=== PATIENT | female | born 1985 | race Caucasian/White ===

== ENCOUNTER 2019-10-19 16:30 | Inpatient (IN) | payer OTHER ==
[2019-10-19] MEDS ORDERED: 0.9 % SODIUM CHLORIDE 1,000 ML BAG IV ONE (16:41)
[2019-10-19] MEDS ORDERED: ONDANSETRON HCL IV 4 MG/2 ML VIAL IV ONE (16:41)
--- NOTE | 2019-10-19 16:44 | Emergency Department Record ---
History of Present Illness - General Chief Complaint: Abdominal Pain Stated Complaint: ALCHOL WITHDRAWAL,ABD PAIN Time Seen by Provider: 10/19/19 16:36 Source: Patient Mode of Arrival: Ambulatory Limitations: No limitations - History of Present Illness Initial Comments: The patient is here due to abdominal pain for 2 months. The pain is in the upper abdomen and worse with eating and drinking at times. The pain seems to be coming and going at times and the patient states she also has a hx of heavy alcohol intake. She also would like to stop drinking alcohol and does have a problem with anxiety, nausea, and vomiting when she stops drinking. The patient denies any hx of vomiting any blood or any fevers. MD Complaint: Abdominal pain Onset/Timin -: Month(s) - Related Data Patient : No Home Medications Medication Instructions Recorded Confirmed Last Taken Cholecalciferol (Vitamin D3) 2,000 unit PO DAILY 10/19/19 10/19/19 10/18/19 [Vitamin D3] Previous Rx's Medication Instructions Recorded Ondansetron [Zofran Odt] 4 mg PO Q8H #15 tab.rapdis 03/29/19 Allergies Allergy/AdvReac Type Severity Reaction Status Date / Time lisinopril AdvReac CONGESTION Verified 10/19/19 16:55 Review of Systems Constitutional: Reports: Malaise. Denies: Chills, Fever Eyes: Denies: Eye discharge ENT: Denies: Congestion Respiratory: Denies: Cough, Dyspnea Cardiovascular: Denies: Chest pain Endocrine: Denies: Fatigue Gastrointestinal: Reports: Abdominal pain, Nausea, Vomiting. Denies: Diarrhea Genitourinary: Denies: Dysuria Musculoskeletal: Denies: Arthralgia Skin: Denies: Bruising Past Medical History - SOCIAL HISTORY Smoking Status: Never smoker Drug Use: None - RESPIRATORY Hx Respiratory Disorders: No - CARDIOVASCULAR Hx Cardio Disorders: Yes Hx Palpitations: Yes - NEURO Hx Neuro Disorders: No - GI Hx GI Disorders: No - Hx Genitourinary Disorders: No - ENDOCRINE Hx Endocrine Disorders: No - MUSCULOSKELETAL Hx Musculoskeletal Disorders: No - PSYCH Hx Psych Problems: Yes Hx Anxiety: Yes - HEMATOLOGY/ONCOLOGY Hx Hematology/Oncology Disorders: No Physical Exam - General General Appearance: Alert, Oriented x3, Cooperative, No acute distress (The patient is awake and alert with no tremors or slurred speech. ) - Head Head exam: Atraumatic, Normocephalic, Normal inspection - Eye Eye exam: Normal appearance, PERRL - ENT Throat exam: Normal inspection. negative: Tonsillar erythema, Tonsillar exudate - Neck Neck exam: Normal inspection, Full ROM. negative: Tenderness - Respiratory Respiratory exam: Normal lung sounds bilaterally. negative: Respiratory distress - Cardiovascular Cardiovascular Exam: Regular rate, Normal rhythm, Normal heart sounds, Tachycardia. negative: Diastolic murmur, Systolic murmur - GI/Abdominal GI/Abdominal exam: Soft, Normal bowel sounds, Tenderness (There is mild RUQ and epigastric tenderness.). negative: Rebound, Rigid - Extremities Extremities exam: Normal inspection, Full ROM, Normal capillary refill. negative: Tenderness - Back Back exam: Reports: Normal inspection - Neurological Neurological exam: Alert, Normal gait, Oriented X3, Other (Neg for tremors.). negative: Abnormal gait, Altered, Motor sensory deficit Course Vital Signs 10/19/19 16:39 Temperature 98.8 F Pulse Rate [ 107 H Pulse Ox Probe] Respiratory 26 H Rate Blood Pressure 132/88 [Left Arm] Pulse Ox 98 - Reevaluation(s) Reevaluation #1: The patient's repeat heart rate was in the 80's after she relaxed and calmed down. She does have a hx of anxiety. 10/19/19 17:10 Reevaluation #2: The patient is doing very well at this time. Her HR is in the 70's and she is relaxed and very conversant with no tremors or nausea. I did discuss the issues with the liver abnormalities and elevated CR with probable impending alcohol withdrawal and did recommend hospital admission and the patient did agree. I also did discuss the case with Verónica ([employer]) and she does accept the patient for Dr. Jean Baptiste. 10/19/19 18:42 Medical Decision Making - Data Complexity MDM Data: Labs Ordered and/or Reviewed, X-Ray Ordered and/or Reviewed, EKG Ordered and/or Reviewed - Lab Data Result diagrams: 10/19/19 16:55 10/19/19 16:55 - EKG Data -: EKG Interpreted by Me EKG: Abnormal EKG (NSR at 75, borderline prolonged QT interval. Prob hypokalemia.) - Radiology Data Radiology results: Report reviewed (Abd CT: Neg for acute changes. Abd US: GB sludge, O/W neg.) Disposition Disposition: Admit Clinical Impression: Alcoholic hepatitis without ascites Disposition: Still a Patient at [facility] Decision to Admit: Admit from ER Decision to Admit Date: 10/19/19 Decision to Admit Time: 18:44 Accepting Physician: Markel Time Discussed w/Accepting Physician: 18:44 Condition: (2) Stable Forms: Patient Portal Access Time of Disposition: 18:44 Quality - Quality Measures Quality Measures: N/A - Blood Pressure Screening View Details: Yes Does Patient Have Any of the Following: No Blood Pressure Classification: Normal BP Reading Systolic Measurement: 111 Diastolic Measurement: 79 Screening for High Blood Pressure: < Normal BP, F/U Not Required > [[id number]]
[2019-10-19] MEDS ORDERED: LORAZEPAM 2 MG/ML VIAL IV ONE (16:51)
[2019-10-19 17:05] LABS: BASO % 0.4 % (0-6); EOS % 0.7 % (0-6); GRAN % 49.4 % (47-80); HEMATOCRIT 40.4 % (35.0-47.0); HEMOGLOBIN 13.5 gm/dl (11.6-16.0); LYMPH % 36.7 % (16-45); MEAN CELL VOLUME 105.2 fl (81-97); MEAN CORPUSCULAR HEMOGLOBIN 35.2 pg (27-33); MEAN CORPUSCULAR HGB CONC 33.4 g/dl (32-36); MEAN PLATELET VOLUME 9.5 fl (7.4-10.4); MONO % 12.8 % (0-9); PLATELET COUNT 182 K/uL (130-400); RED BLOOD COUNT 3.84 M/uL (3.80-5.40); RED CELL DISTRIBUTION WIDTH 12.7 % (11.5-14.5); WHITE BLOOD COUNT W/O DIFF 5.5 K/uL (4.2-12.2)
[2019-10-19 17:06] LABS: URINE APPEARANCE CLEAR; URINE BILIRUBIN NEGATIVE (NEGATIVE); URINE BLOOD NEGATIVE (NEGATIVE); URINE COLOR YELLOW; URINE GLUCOSE (UA) NEGATIVE (NEGATIVE); URINE KETONE NEGATIVE (NEGATIVE); URINE LEUKOCYTE ESTERASE NEGATIVE (NEGATIVE); URINE NITRITE NEGATIVE (NEGATIVE); URINE PROTEIN NEGATIVE (NEGATIVE); URINE UROBILINOGEN 0.2 E.U./dL (0.20 - 1.00)
[2019-10-19 17:35] LABS: CREATININE 1.4 mg/dL (0.5-0.9); TOTAL PROTEIN 7.1 g/dL (6.6-8.7)
[2019-10-19 17:40] LABS: ALBUMIN 4.2 g/dL (4.0-5.0); BILIRUBIN,DIRECT 2.6 mg/dL (0-0.3)
[2019-10-19 18:00] LABS: INR 1.2; PARTIAL THROMBOPLASTIN TIME 24.5 SECONDS (24.5-39.1); PROTHROMBIN TIME (PATIENT) 12.2 SECONDS (9.5-12.1)
[2019-10-19] MEDS ORDERED: [UNRECOGNIZED DRUG - REMARK] IV SCH ×8 (18:00)
[2019-10-19] MEDS ORDERED: [UNRECOGNIZED DRUG - REMARK] IV ONE ×4 (18:03)
[2019-10-19] MEDS ORDERED: POTASSIUM CHLORIDE 20 MEQ TABLET PO ONE (18:05)
--- NOTE | 2019-10-19 18:31 | CT SCAN REPORT ---
EXAMINATION: CT Abdomen and Pelvis without IV Contrast EXAM DATE: 10/19/2019 6:20 PM TECHNIQUE: Standard protocol CT imaging of the abdomen and pelvis was performed without intravenous c ontrast. INDICATION: Flank pain COMPARISON: Sonogram done earlier same day ENCOUNTER: Not applicable CT ABDOMEN AND PELVIS FINDINGS: Lung Bases: Included extent of the lung bases are clear. Hepatobiliary: There is prominent diffuse fatty infiltration of the liver. Liver is enlarged measurin g up to 24 cm. Hyperdense material is seen within the gallbladder. No calcified stones identified. No pericholecystic fluid. Pancreas: The pancreas is normal. Spleen: The spleen is not enlarged. Adrenals: The adrenal glands are normal. Kidneys, Ureters, & Bladder: Both kidneys have a normal size and morphology. There is no hydronephro sis. Both ureters have a normal course and caliber and the urinary bladder a normal morphology and un iform wall thickness. No ureteral or bladder calculi are identified. Gastrointestinal: The stomach and small bowel are normal with no obstruction or inflammation. Appendi x is surgically absent. Right colon left colon and sigmoid colon are poorly distended and cannot be w ell evaluated. Reproductive Organs: Uterus is present. Lymphatic System: There is no adenopathy within the abdomen or pelvis. Vasculature: Normal caliber abdominal aorta Peritoneum: No free fluid, free air, or inflammation Abdominal wall & Musculoskeletal: No suspicious bone lesions. Assessment of the solid organs, soft tissues, and vascular structures is overall limited on noncontra st imaging, IMPRESSION: Hepatomegaly with diffuse fatty infiltration of the liver. Hyperdense material within the gallbladder. No calcified gallstones identified. Nonobstructed bowel with poor distention of the right colon left colon and sigmoid colon. Additional findings as above Dictated by: Juan Sequeira MD on 10/19/2019 6:24 PM. .
--- NOTE | 2019-10-19 18:33 | ULTRASOUND REPORT ---
EXAMINATION: Right Upper Quadrant Abdomen Ultrasound EXAM DATE: 10/19/2019 5:48 PM TECHNIQUE: Ultrasound of the gallbladder INDICATION: RUQ pain. COMPARISON: None FINDINGS: Liver: Liver is enlarged measuring 21 cm. Diffusely increased echogenicity consistent with fatty inf iltration. Gallbladder: No shadowing gallstones. Gallbladder wall is not thickened. Negative sonographic Treviño sign. Common Bile Duct: The common duct measures 3 mm. There is no intrahepatic or extrahepatic bile duct dilatation. Pancreas: The head and body of the pancreas are normal. The tail is obscured by bowel gas. Right Kidney: There is no hydronephrosis. The size and echogenicity of the kidney is normal. Other Findings: No ascites. Vascular imaging: Not performed. IMPRESSION: Diffuse fatty infiltration of the liver which appears enlarged. No other significant findings. Dictated by: Juan Sequeira MD on 10/19/2019 6:22 PM. .
[2019-10-19] MEDS ORDERED: ONDANSETRON HCL IV 4 MG/2 ML VIAL IVP PRN (19:44)
[2019-10-19] MEDS ORDERED: PROMETHAZINE HCL 12.5 MG in 0.9 % SODIUM CHLORIDE 100ML 100 ML IVPB PRN (19:44)
[2019-10-19] MEDS ORDERED: 0.9 % SODIUM CHLORIDE 1000ML 1,000 ML IV ONE (19:44)
[2019-10-19] MEDS: LORAZEPAM 2 MG/ML VIAL IV SCH (21:05)
[2019-10-19] MEDS: PANTOPRAZOLE SODIUM IV 40 MG VIAL IVP SCH (22:13)
[2019-10-20] MEDS: LORAZEPAM 2 MG/ML VIAL IV SCH ×2 (03:39→13:04)
[2019-10-20 06:46] LABS: BASO % 0.2 % (0-6); EOS % 0.7 % (0-6); GRAN % 60.6 % (47-80); HEMATOCRIT 31.9 % (35.0-47.0); HEMOGLOBIN 10.1 gm/dl (11.6-16.0); LYMPH % 26.6 % (16-45); MEAN CELL VOLUME 109.6 fl (81-97); MEAN CORPUSCULAR HEMOGLOBIN 34.7 pg (27-33); MEAN CORPUSCULAR HGB CONC 31.7 g/dl (32-36); MEAN PLATELET VOLUME 9.5 fl (7.4-10.4); MONO % 11.9 % (0-9); PLATELET COUNT 109 K/uL (130-400); RED BLOOD COUNT 2.91 M/uL (3.80-5.40); RED CELL DISTRIBUTION WIDTH 13.1 % (11.5-14.5); WHITE BLOOD COUNT W/O DIFF 4.1 K/uL (4.2-12.2)
[2019-10-20 07:06] LABS: ALB/GLOB RATIO 1.4 (1.1-1.8); BILIRUBIN,TOTAL 4.8 mg/dL (0.2-1.0); CREATININE 1.2 mg/dL (0.5-0.9); TOTAL PROTEIN 5.1 g/dL (6.6-8.7)
--- NOTE | 2019-10-20 08:51 | History & Physical ---
History of Present Illness - Date of Service Date of Service for History & Physical: 10/20/19 - History of Present Illness Admitting Diagnosis: 1. Acute Alcoholic Hepatitis with vomiting. History of Present Illness: 34 yo female presents for ETOH withdrawal, abd pain, n/v/d. Reporting 8 year ETOH abuse with increase to 1.5 pint daily in the past 6 months. Symptoms of sweating, shaking, nausea, vomiting, tachycardia after 4 hours of no ETOH. Pt is requesting detox but denies desire to go to rehab and believes she does not need to attend AA as she is determined to remain sober and has the will power to do so. Vitals stable at arrival 98.8 F, HR 107, RR 26, BP 132/88, 98% RA pain 5/10 Pt given 1 L NS, zofran, K sup CT ab/pel neg for acute process, hepatomegaly with fatty infiltrates, gallbladder sludge noted US- neg acute process, fatty liver infiltrates Admit for ETOH withdrawal Laboratory Tests 10/19/19 10/19/19 10/19/19 16:55 16:55 16:55 WBC 5.5 RBC 3.84 Hgb 13.5 Hct 40.4 Plt Count 182 Absolute Neutrophils 2.70 PT 12.2 H INR 1.2 APTT 24.5 Sodium 133 L Potassium 2.8 L* Chloride 83 L Carbon Dioxide 27.0 Anion Gap 23.0 H BUN 12 Creatinine 1.4 H Estimated GFR 46 Random Glucose 101 Calcium 9.3 Total Bilirubin 4.00 H Direct Bilirubin 2.6 H AST 202 H ALT 94 H Alkaline Phosphatase 176 H Total Protein 7.1 Albumin 4.2 Lipase 50 10/20/19 Pt pwd, sitting up in bed with no difficulties, no tremors, denies n/v and reports ready to advance diet. Pt continues to decline rehab treatment and wants to d/c after the 72 hr withdrawal window has finished. She is wanting to f/u wi th PCP and start antibuse for continued treatment. Lungs CTA, RRR, and a&ox4. POC to add librium for the next 2-3 days, continue CIWA scale q4, quality assurance monitor final, repeat labs in the AM. Prolonged QT noted, d/c zofran, changed celexa to lexapro. PCP [place] Travel Screening - Travel/Exposure Within Last 30 Days Have you traveled within the last 30 days?: No - Travel/Exposure Within Last Year Have you traveled outside the [place] in the last year?: No - Additonal Travel Details Have you been exposed to anyone with a communicable illness?: No - Travel Symptoms Symptom Screening: Weakness Review of Systems Constitutional: Reports: Malaise. Denies: Chills, Fever Eyes: Denies: Eye discharge ENT: Denies: Congestion Respiratory: Denies: Cough, Dyspnea Cardiovascular: Denies: Chest pain Endocrine: Denies: Fatigue Gastrointestinal: Reports: Abdominal pain, Nausea, Vomiting. Denies: Diarrhea Genitourinary: Denies: Dysuria Musculoskeletal: Denies: Arthralgia Skin: Denies: Bruising Past Medical History - SOCIAL HISTORY Smoking Status: Never smoker Alcohol Use: Heavy Drug Use: None - RESPIRATORY Hx Respiratory Disorders: No Hx Asthma: Yes (sports induced as child) - CARDIOVASCULAR Hx Cardio Disorders: Yes Hx Palpitations: Yes - NEURO Hx Neuro Disorders: No - GI Hx GI Disorders: No Hx Irritable Bowel: Yes Hx Ulcer: Yes - Hx Genitourinary Disorders: No Hx UTI: Yes - ENDOCRINE Hx Endocrine Disorders: No - MUSCULOSKELETAL Hx Musculoskeletal Disorders: No - PSYCH Hx Psych Problems: Yes Hx Anxiety: Yes - HEMATOLOGY/ONCOLOGY Hx Hematology/Oncology Disorders: No Family Medical History Any Significant Family History?: No H&P Meds/Allergies - Allergies Allergies: Allergies Allergy/AdvReac Type Severity Reaction Status Date / Time lisinopril AdvReac CONGESTION Verified 10/19/19 16:55 - Home Medications Home Medications Medication Instructions Recorded Confirmed Last Taken Cholecalciferol (Vitamin D3) 2,000 unit PO DAILY 10/19/19 10/19/19 10/18/19 [Vitamin D3] Previous Rx's Medication Instructions Recorded Ondansetron [Zofran Odt] 4 mg PO Q8H #15 tab.rapdis 03/29/19 - Active Medications Active Medications: Current Medications Citalopram Hydrobromide (Celexa) 40 mg PO DAILY JOANNA Hydrochlorothiazide (Hctz 12.5mg) 12.5 mg PO DAILY JOANNA Promethazine HCl 12.5 mg/ (Sodium Chloride) 100.5 mls @ 200 mls/hr IVPB Q6H PRN PRN Reason: NAUSEA Lorazepam (Ativan) 1 mg IV Q8H JOANNA Last Admin: 10/20/19 03:39 Dose: 1 mg Documented by: Losartan Potassium (Cozaar) 50 mg PO DAILY JOANNA Ondansetron HCl (Zofran) 4 mg IVP Q6H PRN PRN Reason: NAUSEA Pantoprazole Sodium (Protonix Iv) 40 mg IVP Q24H JOANNA Last Admin: 10/19/19 22:13 Dose: 40 mg Documented by: Physical Exam - Vital Signs Vital Signs: Vital Signs - Last 24 Hrs Temp Pulse Pulse Resp BP BP Pulse Ox 10/20/19 06:00 98.3 F 83 18 104/55 98 10/20/19 02:00 97 H 18 109/67 98 10/19/19 22:00 98.9 F 83 20 129/76 96 10/19/19 21:00 83 20 10/19/19 20:00 98.8 F 78 20 123/79 99 10/19/19 19:50 79 20 116/75 98 10/19/19 18:29 93 H 16 111/79 100 10/19/19 16:39 98.8 F 107 H 26 H 132/88 98 - General General Appearance: Alert, Oriented x3, Cooperative, No acute distress (The patient is awake and alert with no tremors or slurred speech. ) Limitations: No limitations - Head Head exam: Atraumatic, Normocephalic, Normal inspection - Eye Eye exam: Normal appearance, PERRL - ENT ENT exam: Normal exam Ear exam: Normal external inspection Mouth exam: Normal external inspection Throat exam: Normal inspection. negative: Tonsillar erythema, Tonsillar exudate - Neck Neck exam: Normal inspection, Full ROM. negative: Tenderness - Respiratory Respiratory exam: Normal lung sounds bilaterally. negative: Respiratory distress - Cardiovascular Cardiovascular Exam: Normal rhythm, Normal heart sounds, Tachycardia. negative: Diastolic murmur, Systolic murmur Peripheral Pulses: 3+: Radial (R), Radial (L), Dorsalis Pedis (R), Dorsalis Pedis (L) - GI/Abdominal GI/Abdominal exam: Soft, Normal bowel sounds, Tenderness (There is mild RUQ and epigastric tenderness.). negative: Rebound, Rigid - Extremities Extremities exam: Normal inspection, Full ROM, Normal capillary refill. negative: Tenderness - Back Back exam: Reports: Normal inspection - Neurological Neurological exam: Alert, Normal gait, Oriented X3, Other (Neg for tremors.). negative: Abnormal gait, Altered, Motor sensory deficit - Psychiatric Psychiatric exam: Normal affect, Normal mood Results - Labs Result Diagrams: 10/20/19 06:25 10/20/19 06:25 Labs Last 24 Hours: Laboratory Results - last 24 hr 10/19/19 10/19/19 10/19/19 15:00 16:55 16:55 WBC 5.5 RBC 3.84 Hgb 13.5 Hct 40.4 MCV 105.2 H MCH 35.2 H MCHC 33.4 RDW 12.7 Plt Count 182 MPV 9.5 Gran % 49.4 Lymphocytes % 36.7 Monocytes % 12.8 H Eosinophils % 0.7 Basophils % 0.4 Absolute Neutrophils 2.70 PT INR APTT Sodium 133 L Potassium 2.8 L* Chloride 83 L Carbon Dioxide 27.0 Anion Gap 23.0 H BUN 12 Creatinine 1.4 H Estimated GFR 46 Random Glucose 101 Calcium 9.3 Total Bilirubin 4.00 H Direct Bilirubin 2.6 H AST 202 H ALT 94 H Alkaline Phosphatase 176 H Total Protein 7.1 Albumin 4.2 Globulin Albumin/Globulin Ratio Lipase 50 Serum HCG, Qual Urine Color Yellow Urine Appearance Clear Urine pH 6.0 Ur Specific Normal <= 1.005 Urine Protein Negative Urine Glucose (UA) Negative Urine Ketones Negative Urine Blood Negative Urine Nitrite Negative Urine Bilirubin Negative Urine Urobilinogen 0.2 Ur Leukocyte Esterase Negative Ethyl Alcohol 10/19/19 10/19/19 10/19/19 16:55 16:55 16:55 WBC RBC Hgb Hct MCV MCH MCHC RDW Plt Count MPV Gran % Lymphocytes % Monocytes % Eosinophils % Basophils % Absolute Neutrophils PT 12.2 H INR 1.2 APTT 24.5 Sodium Potassium Chloride Carbon Dioxide Anion Gap BUN Creatinine Estimated GFR Random Glucose Calcium Total Bilirubin Direct Bilirubin AST ALT Alkaline Phosphatase Total Protein Albumin Globulin Albumin/Globulin Ratio Lipase Serum HCG, Qual Negative Urine Color Urine Appearance Urine pH Ur Specific Normal Urine Protein Urine Glucose (UA) Urine Ketones Urine Blood Urine Nitrite Urine Bilirubin Urine Urobilinogen Ur Leukocyte Esterase Ethyl Alcohol 0.116 H 10/20/19 10/20/19 06:25 06:25 WBC 4.1 L RBC 2.91 L Hgb 10.1 L Hct 31.9 L MCV 109.6 H MCH 34.7 H MCHC 31.7 L RDW 13.1 Plt Count 109 L MPV 9.5 Gran % 60.6 Lymphocytes % 26.6 Monocytes % 11.9 H Eosinophils % 0.7 Basophils % 0.2 Absolute Neutrophils 2.50 PT INR APTT Sodium 139 Potassium 3.8 Chloride 97 L Carbon Dioxide 26.0 Anion Gap 16.0 BUN 10 Creatinine 1.2 H Estimated GFR 55 Random Glucose 82 Calcium 7.6 L Total Bilirubin 4.80 H Direct Bilirubin AST 171 H ALT 71 H Alkaline Phosphatase 124 H Total Protein 5.1 L Albumin 3.0 L Globulin 2.1 Albumin/Globulin Ratio 1.4 Lipase Serum HCG, Qual Urine Color Urine Appearance Urine pH Ur Specific Normal Urine Protein Urine Glucose (UA) Urine Ketones Urine Blood Urine Nitrite Urine Bilirubin Urine Urobilinogen Ur Leukocyte Esterase Ethyl Alcohol - Imaging and Cardiology CT scan - abdomen Status: Report reviewed US - abdomen Status: Report reviewed VTE H&P Assessment - Risk for VTE Risk for VTE: Yes Risk Level: Moderate Risk Assessment Date: 10/20/19 Risk Assessment Time: 15:39 VTE Orders Placed or Will Be Placed: Yes Plan - Inpatient Certification Inpatient Certification: Admit to inpatient care: Based on my medical assessment, after consideration of patient's risk factors (age, co-morbidities and patient presenting symptoms and acuity), I expect that this patient will remain in the hospital greater than or equal to two midnights and that the services needed warrant inpatient care because: Patient Risk Factors: seisure, electrolyte imbalance, dysrythmia Estimated length of stay: [] The patient may reasonably be expected to be discharged or transferred to a hospital within 96 hours after admission to [facility]. Services needed: freq CIWA scoring, PO/IV medication, IVF, lab monitoring, cardiac monitoring Post hospital care (if known): [] I certify that my determination is in accordance with my understanding of Medicare requirements for reasonable and necessary inpatient services. 10/20/19 15:39 - Detailed Diagnosis and Plan (1) Alcoholic hepatitis without ascites Current Visit: Yes Status: Acute Base Code: K70.10 - ALCOHOLIC HEPATITIS WITHOUT ASCITES Comment: 10/20/19 -pt drinks 1.5 pints daily for 6 months, h/o daily ETOH abuse 8 yrs -CT neg for acute process, lipase neg, -N/V tx, pt tolerating CLD and advancing this HS -repeat labs in the am -CIWA q4hrs, librium 15mg TID and ativan IVP PRN -cont cardiac monitoring (2) Hypokalemia Current Visit: Yes Status: Acute Base Code: E87.6 - HYPOKALEMIA Comment: 10/19/19 -K 2.8, replaced and repeat 3.8 -repeat labs in the AM (3) DVT prophylaxis Current Visit: Yes Status: Acute Base Code: Z29.9 - ENCOUNTER FOR PROPHYLACTIC MEASURES, UNSPECIFIED Comment: 10/20/19 -lovenox 40mg SQ daily starting tomorrow, mod risk r/t decreased activity (4) Full code status Current Visit: Yes Status: Acute Base Code: Z78.9 - OTHER SPECIFIED HEALTH STATUS Comment: 10/20/19 -full code this admission
[2019-10-20] MEDS ORDERED: CITALOPRAM 20 MG TABLET PO SCH (10:00)
[2019-10-20] MEDS: CHLORDIAZEPOXIDE 10 MG CAPSULE PO SCH ×3 (10:38→23:11)
[2019-10-20] MEDS: LOSARTAN POTASSIUM 25 MG TABLET PO SCH (10:39)
[2019-10-20] MEDS: HYDROCHLOROTHIAZIDE 12.5 MG CAPSULE PO SCH (10:40)
[2019-10-20] MEDS ORDERED: LORAZEPAM 2 MG/ML VIAL IV PRN (14:46)
[2019-10-20] MEDS: PANTOPRAZOLE SODIUM IV 40 MG VIAL IVP SCH (23:15)
[2019-10-21 06:48] LABS: ABSOLUTE NEUTROPHIL COUNT 1.72; BASO % 0.3 % (0-6); EOS % 0.9 % (0-6); GRAN % 54.5 % (47-80); HEMATOCRIT 33.8 % (35.0-47.0); HEMOGLOBIN 10.6 gm/dl (11.6-16.0); MEAN CELL VOLUME 110.5 fl (81-97); MEAN CORPUSCULAR HEMOGLOBIN 34.6 pg (27-33); MEAN CORPUSCULAR HGB CONC 31.4 g/dl (32-36); MONO % 12.3 % (0-9); PLATELET COUNT 121 K/uL (130-400); RED BLOOD COUNT 3.06 M/uL (3.80-5.40); RED CELL DISTRIBUTION WIDTH 12.9 % (11.5-14.5); WHITE BLOOD COUNT W/O DIFF 3.2 K/uL (4.2-12.2)
[2019-10-21 07:10] LABS: ALB/GLOB RATIO 1.6 (1.1-1.8); ALBUMIN 3.4 g/dL (4.0-5.0); ALKALINE PHOSPHATASE 136 U/L (35-104); ALT/SGPT 70 U/L (<33); AST/SGOT 152 U/L (10.0-35.0); BLOOD UREA NITROGEN 7 mg/dL (6-20); EST GLOMERULAR FILTRATION RATE > 60 mL/min; GLUCOSE,RANDOM 86 mg/dL (74-109); TOTAL PROTEIN 5.5 g/dL (6.6-8.7)
[2019-10-21] MEDS ORDERED: MAGNESIUM SULFATE 16 MEQ in 0.9 % SODIUM CHLORIDE 100ML 100 ML IV ONE (08:19)
[2019-10-21] MEDS: CHLORDIAZEPOXIDE 10 MG CAPSULE PO SCH ×3 (09:40→23:06)
[2019-10-21] MEDS: HYDROCHLOROTHIAZIDE 12.5 MG CAPSULE PO SCH (09:41)
[2019-10-21] MEDS: LOSARTAN POTASSIUM 25 MG TABLET PO SCH (09:41)
[2019-10-21] MEDS: ESCITALOPRAM 10 MG TABLET PO SCH (09:42)
[2019-10-21] MEDS: ENOXAPARIN 40 MG/0.4 ML SYR SQ SCH (09:43)
[2019-10-21] MEDS ORDERED: POTASSIUM CHL 20MEQ IN 1L NS 20 MEQ/1,000 ML BAG IV ONE (10:19)
[2019-10-21 10:26] LABS: URINE APPEARANCE CLEAR; URINE COLOR YELLOW
[2019-10-21 10:27] LABS: URINE BILIRUBIN NEGATIVE (NEGATIVE); URINE BLOOD NEGATIVE (NEGATIVE); URINE GLUCOSE (UA) NEGATIVE (NEGATIVE); URINE KETONE NEGATIVE (NEGATIVE); URINE LEUKOCYTE ESTERASE NEGATIVE (NEGATIVE); URINE NITRITE NEGATIVE (NEGATIVE); URINE PROTEIN NEGATIVE (NEGATIVE); URINE UROBILINOGEN 0.2 E.U./dL (0.20 - 1.00)
[2019-10-21] MEDS: POTASSIUM CHLORIDE 20 MEQ TABLET PO ONE (10:49)
[2019-10-21 10:58] LABS: LACTIC ACID 1.5 mmol/L (0.5-2.2)
[2019-10-21] MEDS ORDERED: LORAZEPAM 2 MG/ML VIAL IV PRN ×3 (11:04→11:15)
[2019-10-21] MEDS: FOLIC ACID 1 MG TABLET PO SCH (12:47)
[2019-10-21] MEDS: CYANOCOBALAMIN (VITAMIN B-12) 100 MCG TABLET PO SCH (12:47)
[2019-10-21] MEDS: MULTIVITAMINS/MINERALS TABLET PO SCH (12:47)
[2019-10-21] MEDS: THIAMINE MONONITRATE 100 MG TABLET PO SCH (12:47)
[2019-10-21] MEDS ORDERED: CHLORDIAZEPOXIDE 10 MG CAPSULE PO SCH (18:00)
[2019-10-21] MEDS: PANTOPRAZOLE SODIUM IV 40 MG VIAL IVP SCH (20:48)
[2019-10-22 06:23] LABS: ABSOLUTE NEUTROPHIL COUNT 1.68; BASO % 0.3 % (0-6); GRAN % 54.2 % (47-80); HEMATOCRIT 32.8 % (35.0-47.0); HEMOGLOBIN 10.2 gm/dl (11.6-16.0); LYMPH % 31.6 % (16-45); MEAN CELL VOLUME 111.2 fl (81-97); MEAN CORPUSCULAR HGB CONC 31.1 g/dl (32-36); MEAN PLATELET VOLUME 9.8 fl (7.4-10.4); MONO % 12.9 % (0-9); PLATELET COUNT 115 K/uL (130-400); RED BLOOD COUNT 2.95 M/uL (3.80-5.40); WHITE BLOOD COUNT W/O DIFF 3.1 K/uL (4.2-12.2)
[2019-10-22 06:28] LABS: INR 1.3; MEAN CORPUSCULAR HEMOGLOBIN 34.5 pg (27-33); PARTIAL THROMBOPLASTIN TIME 25.2 SECONDS (24.5-39.1); PROTHROMBIN TIME (PATIENT) 13.1 SECONDS (9.5-12.1)
[2019-10-22 06:39] LABS: ALB/GLOB RATIO 1.4 (1.1-1.8); ALKALINE PHOSPHATASE 137 U/L (35-104); ALT/SGPT 54 U/L (<33); AST/SGOT 84 U/L (10.0-35.0); BLOOD UREA NITROGEN 5 mg/dL (6-20); CREATININE 0.9 mg/dL (0.5-0.9); EST GLOMERULAR FILTRATION RATE > 60 mL/min; GLUCOSE,RANDOM 92 mg/dL (74-109); TOTAL PROTEIN 5.2 g/dL (6.6-8.7)
[2019-10-22] MEDS: CHLORDIAZEPOXIDE 10 MG CAPSULE PO SCH ×3 (08:28→22:45)
[2019-10-22] MEDS ORDERED: MAGNESIUM SULFATE 16 MEQ in 0.9 % SODIUM CHLORIDE 100ML 100 ML IV ONE (09:05)
--- NOTE | 2019-10-22 09:08 | Physician Progress Note ---
Subjective - Date Date of Physician Progress Note: 10/22/19 - Subjective Subjective Comment: pt had increased symptoms 10/21/2019, CIWA 8 at one time, has increased anxiety and reports "whole body feels like a bruise" -pt is resting in bed, mother at her bedside Objective - Vital Signs Vital Signs: Vital Signs - Last 24 Hrs Temp Pulse Pulse Resp BP Pulse Ox 10/22/19 04:00 98.2 F 69 18 107/59 95 10/22/19 00:00 98.3 F 79 16 105/67 95 10/21/19 20:00 98.4 F 73 16 102/61 95 10/21/19 12:00 85 16 128/85 98 - General General Appearance: Alert, Oriented x3, Cooperative, No acute distress (The patient is awake and alert with no tremors or slurred speech. ) Limitations: No limitations - Head Head exam: Atraumatic, Normocephalic, Normal inspection - Eye Eye exam: Normal appearance, PERRL - ENT ENT exam: Normal exam Ear exam: Normal external inspection Mouth exam: Normal external inspection Throat exam: Normal inspection. negative: Tonsillar erythema, Tonsillar exudate - Neck Neck exam: Normal inspection, Full ROM. negative: Tenderness - Respiratory Respiratory exam: Normal lung sounds bilaterally. negative: Respiratory distress - Cardiovascular Cardiovascular Exam: Normal rhythm, Normal heart sounds, Tachycardia. negative: Diastolic murmur, Systolic murmur Peripheral Pulses: 3+: Radial (R), Radial (L), Dorsalis Pedis (R), Dorsalis Pedis (L) - GI/Abdominal GI/Abdominal exam: Soft, Normal bowel sounds, Tenderness (There is mild RUQ and epigastric tenderness.). negative: Rebound, Rigid - Extremities Extremities exam: Normal inspection, Full ROM, Normal capillary refill. negative: Tenderness - Back Back exam: Reports: Normal inspection - Neurological Neurological exam: Alert, Normal gait, Oriented X3, Other (Neg for tremors.). negative: Abnormal gait, Altered, Motor sensory deficit - Psychiatric Psychiatric exam: Normal affect, Normal mood Assessment and Plan - Assessment and Plan (1) Alcoholic hepatitis without ascites Current Visit: Yes Status: Acute Base Code: K70.10 - ALCOHOLIC HEPATITIS WITHOUT ASCITES Comment: 10/21/2019 -pt bilirubin increasing, passing in urine and reports itching -GI consult ordered and Dr Yousef saw pt on the floor, suggests Hep screening, continued ETOH avoidance, and f/u with PCP and get GI oupt consult -pt has been tolerating PO medications, had one elevated CIWA of 8 but controlled symptoms in general, has not completed her 72 hours of sobriety and concerns for prolonged symptoms remain -continue to monitor, mag 0.9, given 2gm Mag sulfate IVPB, continue to monitor -librium 15mg TID and ativan PRN for symptoms control, CIWA q 4 hrs 10/20/19 -pt drinks 1.5 pints daily for 6 months, h/o daily ETOH abuse 8 yrs -CT neg for acute process, lipase neg, -N/V tx, pt tolerating CLD and advancing this HS -repeat labs in the am -CIWA q4hrs, librium 15mg TID and ativan IVP PRN -cont cardiac monitoring (2) Hypokalemia Current Visit: Yes Status: Acute Base Code: E87.6 - HYPOKALEMIA Comment: 10/21/2019 -K 2.8-->3.8-->3.3 -k supp in IVF infusing, vomiting has stopped, diet advance as tolerated 10/20/19 -K 2.8, replaced and repeat 3.8 -repeat labs in the AM (3) DVT prophylaxis Current Visit: Yes Status: Acute Base Code: Z29.9 - ENCOUNTER FOR PROPHYLACTIC MEASURES, UNSPECIFIED Comment: 10/21/19 -lovenox 40mg SQ daily starting tomorrow, mod risk r/t decreased activity (4) Full code status Current Visit: Yes Status: Acute Base Code: Z78.9 - OTHER SPECIFIED HEALTH STATUS Comment: 10/21/19 -full code this admission Results - Labs Result Diagrams: 10/22/19 05:42 10/22/19 05:42 Labs Last 24 Hours: Laboratory Results - last 24 hr 10/21/19 10/21/19 10/22/19 10:12 10:25 05:42 WBC 3.1 L RBC 2.95 L Hgb 10.2 L Hct 32.8 L MCV 111.2 H MCH 34.5 H MCHC 31.1 L RDW 13.0 Plt Count 115 L MPV 9.8 Gran % 54.2 Lymphocytes % 31.6 Monocytes % 12.9 H Eosinophils % 1.0 Basophils % 0.3 Absolute Neutrophils 1.68 PT INR APTT Sodium Potassium Chloride Carbon Dioxide Anion Gap BUN Creatinine Estimated GFR Random Glucose Lactic Acid 1.5 Calcium Magnesium Total Bilirubin AST ALT Alkaline Phosphatase Ammonia 29 Creatine Kinase 52 Total Protein Albumin Globulin Albumin/Globulin Ratio Urine Color Yellow Urine Appearance Clear Urine pH 6.0 Ur Specific [place] 1.010 Urine Protein Negative Urine Glucose (UA) Negative Urine Ketones Negative Urine Blood Negative Urine Nitrite Negative Urine Bilirubin Negative Urine Urobilinogen 0.2 Ur Leukocyte Esterase Negative 10/22/19 10/22/19 05:42 05:42 WBC RBC Hgb Hct MCV MCH MCHC RDW Plt Count MPV Gran % Lymphocytes % Monocytes % Eosinophils % Basophils % Absolute Neutrophils PT 13.1 H INR 1.3 APTT 25.2 Sodium 141 Potassium 3.2 L Chloride 97 L Carbon Dioxide 30.0 H Anion Gap 14.0 BUN 5 L Creatinine 0.9 Estimated GFR > 60 Random Glucose 92 Lactic Acid Calcium 8.0 L Magnesium 1.2 L Total Bilirubin 4.90 H AST 84 H ALT 54 H Alkaline Phosphatase 137 H Ammonia Creatine Kinase Total Protein 5.2 L Albumin 3.0 L Globulin 2.2 Albumin/Globulin Ratio 1.4 Urine Color Urine Appearance Urine pH Ur Specific [place] Urine Protein Urine Glucose (UA) Urine Ketones Urine Blood Urine Nitrite Urine Bilirubin Urine Urobilinogen Ur Leukocyte Esterase DVT/PE Assessment - Risk for VTE Risk for VTE: No Risk Level: Moderate Risk Assessment Date: 10/20/19 Risk Assessment Time: 15:39 VTE Orders Placed or Will Be Placed: Yes - Active Medicaitons Current Medications: Current Medications Chlordiazepoxide HCl (Librium) 20 mg PO Q8HR [facility] Last Admin: 10/22/19 08:28 Dose: 20 mg Documented by: Cyanocobalamin (Vitamin B-12) 100 mcg PO DAILY [facility] Stop: 10/24/19 11:16 Last Admin: 10/21/19 12:47 Dose: 100 mcg Documented by: Enoxaparin Sodium (Lovenox) 40 mg SQ DAILY [facility] Last Admin: 10/21/19 09:43 Dose: 40 mg Documented by: Escitalopram Oxalate (Lexapro) 20 mg PO DAILY [facility] Last Admin: 10/21/19 09:42 Dose: 20 mg Documented by: Folic Acid () 1 mg PO DAILY [facility] Stop: 10/24/19 11:16 Last Admin: 10/21/19 12:47 Dose: 1 mg Documented by: Hydrochlorothiazide (Hctz 12.5mg) 12.5 mg PO DAILY [facility] Last Admin: 10/21/19 09:41 Dose: 12.5 mg Documented by: Promethazine HCl 12.5 mg/ (Sodium Chloride) 100.5 mls @ 200 mls/hr IVPB Q6H PRN PRN Reason: NAUSEA Magnesium Sulfate 16 meq/ (Sodium Chloride) 104 mls @ 100 mls/hr IV NOW ONE Stop: 10/22/19 10:07 Lorazepam (Ativan) 1 mg IV Q2H PRN PRN Reason: ALCOHOL WITHDRAWAL Last Admin: 10/21/19 13:17 Dose: 1 mg Documented by: Lorazepam (Ativan) 2 mg IV NOW PRN PRN Reason: SEIZURE Lorazepam (Ativan) 2 mg IV Q1H PRN PRN Reason: ALCOHOL WITHDRAWAL Losartan Potassium (Cozaar) 50 mg PO DAILY [facility] Last Admin: 10/21/19 09:41 Dose: 50 mg Documented by: Multivitamins/Minerals (Centrum) 1 tab PO DAILY [facility] Last Admin: 10/21/19 12:47 Dose: 1 tab Documented by: Pantoprazole Sodium (Protonix Iv) 40 mg IVP Q24H [facility] Last Admin: 10/21/19 20:48 Dose: 40 mg Documented by: PRAVIN Plan - Labs Result Diagrams: 10/22/19 05:42 10/22/19 05:42
[2019-10-22] MEDS ORDERED: POTASSIUM CHLORIDE 20 MEQ/15ML CUP PO ONE (09:11)
[2019-10-22] MEDS: ENOXAPARIN 40 MG/0.4 ML SYR SQ SCH (09:44)
[2019-10-22] MEDS: POTASSIUM CHLORIDE 20 MEQ TABLET PO ONE (09:49)
[2019-10-22] MEDS: MULTIVITAMINS/MINERALS TABLET PO SCH (09:49)
[2019-10-22] MEDS: LOSARTAN POTASSIUM 25 MG TABLET PO SCH (09:49)
[2019-10-22] MEDS: HYDROCHLOROTHIAZIDE 12.5 MG CAPSULE PO SCH (09:49)
[2019-10-22] MEDS: CYANOCOBALAMIN (VITAMIN B-12) 100 MCG TABLET PO SCH ×2 (09:49→09:50)
[2019-10-22] MEDS: THIAMINE MONONITRATE 100 MG TABLET PO SCH (09:50)
[2019-10-22] MEDS: FOLIC ACID 1 MG TABLET PO SCH (09:50)
[2019-10-22] MEDS: ESCITALOPRAM 10 MG TABLET PO SCH (09:58)
--- NOTE | 2019-10-22 12:59 | Physician Progress Note ---
Subjective - Date Date of Physician Progress Note: 10/22/19 - Subjective Subjective Comment: pt had increased symptoms 10/21/2019, CIWA 8 at one time, has increased anxiety and reports "whole body feels like a bruise" -pt is resting in bed, mother at her bedside Pt reports anxiety but stable with current meds, has concerns when d/c'd -does agree to seek sponsor and follow up ETOH abuse help and see pcp for treatment Objective - Vital Signs Vital Signs: Vital Signs - Last 24 Hrs Temp Pulse Pulse Resp BP BP Pulse Ox 10/22/19 08:28 98.6 F 74 16 108/74 97 10/22/19 04:00 98.2 F 69 18 107/59 95 10/22/19 00:00 98.3 F 79 16 105/67 95 10/21/19 20:00 98.4 F 73 16 102/61 95 - General General Appearance: Alert, Oriented x3, Cooperative, No acute distress (The patient is awake and alert with no tremors or slurred speech. ) Limitations: No limitations - Head Head exam: Atraumatic, Normocephalic, Normal inspection - Eye Eye exam: Normal appearance, PERRL - ENT ENT exam: Normal exam Ear exam: Normal external inspection Mouth exam: Normal external inspection Throat exam: Normal inspection. negative: Tonsillar erythema, Tonsillar exudate - Neck Neck exam: Normal inspection, Full ROM. negative: Tenderness - Respiratory Respiratory exam: Normal lung sounds bilaterally. negative: Respiratory distress - Cardiovascular Cardiovascular Exam: Normal rhythm, Normal heart sounds, Tachycardia. negative: Diastolic murmur, Systolic murmur Peripheral Pulses: 3+: Radial (R), Radial (L), Dorsalis Pedis (R), Dorsalis Pedis (L) - GI/Abdominal GI/Abdominal exam: Soft, Normal bowel sounds, Tenderness (There is mild RUQ and epigastric tenderness.). negative: Rebound, Rigid - Extremities Extremities exam: Normal inspection, Full ROM, Normal capillary refill. negative: Tenderness - Back Back exam: Reports: Normal inspection - Neurological Neurological exam: Alert, Normal gait, Oriented X3, Other (Neg for tremors.). negative: Abnormal gait, Altered, Motor sensory deficit - Psychiatric Psychiatric exam: Normal affect, Normal mood Assessment and Plan - Assessment and Plan (1) Alcoholic hepatitis without ascites Current Visit: Yes Status: Acute Base Code: K70.10 - ALCOHOLIC HEPATITIS WITHOUT ASCITES Comment: 10/22/2019 -bilirubin decreased, pt a&ox4 -72 hours at noon today, d/c tomorrow and pt has appt with PCP thursday -will give 1 day of librium until pt seen by PCP, pt educated on the danger of mixing ETOH with medication and verbalized understanding and desire to remain sober 10/21/2019 -pt bilirubin increasing, passing in urine and reports itching -GI consult ordered and Dr Deleon saw pt on the floor, suggests Hep screening, continued ETOH avoidance, and f/u with PCP and get GI oupt consult -pt has been tolerating PO medications, had one elevated CIWA of 8 but controlled symptoms in general, has not completed her 72 hours of sobriety and concerns for prolonged symptoms remain -continue to monitor, mag 0.9, given 2gm Mag sulfate IVPB, continue to monitor -librium 15mg TID and ativan PRN for symptoms control, CIWA q 4 hrs 10/20/19 -pt drinks 1.5 pints daily for 6 months, h/o daily ETOH abuse 8 yrs -CT neg for acute process, lipase neg, -N/V tx, pt tolerating CLD and advancing this HS -repeat labs in the am -CIWA q4hrs, librium 15mg TID and ativan IVP PRN -cont cardiac monitoring (2) Hypokalemia Current Visit: Yes Status: Acute Base Code: E87.6 - HYPOKALEMIA Comment: 10/22/2019 -K 2.8-->3.8-->3.3-->3.2 -pt given PO supp, IVF d/c 10/21/2019 -K 2.8-->3.8-->3.3 -k supp in IVF infusing, vomiting has stopped, diet advance as tolerated 10/20/19 -K 2.8, replaced and repeat 3.8 -repeat labs in the AM (3) Elevated bilirubin Current Visit: Yes Status: Acute Base Code: R17 - UNSPECIFIED JAUNDICE Comment: 10/22/2019 -bilirubin 4-->1.8-->5.2-->4.9 -GI consult was completed yesterday, cleared to d/c if coags wnl -PT 12.2-->13.1 -INR 1.2-->1.3 -aPTT 24.5-->25.2 -pt to f/u with GI outpt (4) Hypomagnesemia Current Visit: Yes Status: Acute Base Code: E83.42 - HYPOMAGNESEMIA Comment: 10/22/2019 -mag was found to be 0.9, given 2gm IVPB and increased to 1.2 -repeat IVPB was attempted but was not tolerated by pt, changed to PO mag -continue to monitor, repeat lab in AM -d/c if stable (5) DVT prophylaxis Current Visit: Yes Status: Acute Base Code: Z29.9 - ENCOUNTER FOR PROPHYLACTIC MEASURES, UNSPECIFIED Comment: 10/22/19 -lovenox 40mg SQ daily starting tomorrow, mod risk r/t decreased activity (6) Full code status Current Visit: Yes Status: Acute Base Code: Z78.9 - OTHER SPECIFIED HEALTH STATUS Comment: 10/22/19 -full code this admission Results - Labs Result Diagrams: 10/22/19 05:42 10/22/19 05:42 Labs Last 24 Hours: Laboratory Results - last 24 hr 10/22/19 10/22/19 10/22/19 05:42 05:42 05:42 WBC 3.1 L RBC 2.95 L Hgb 10.2 L Hct 32.8 L MCV 111.2 H MCH 34.5 H MCHC 31.1 L RDW 13.0 Plt Count 115 L MPV 9.8 Gran % 54.2 Lymphocytes % 31.6 Monocytes % 12.9 H Eosinophils % 1.0 Basophils % 0.3 Absolute Neutrophils 1.68 PT 13.1 H INR 1.3 APTT 25.2 Sodium 141 Potassium 3.2 L Chloride 97 L Carbon Dioxide 30.0 H Anion Gap 14.0 BUN 5 L Creatinine 0.9 Estimated GFR > 60 Random Glucose 92 Calcium 8.0 L Magnesium 1.2 L Total Bilirubin 4.90 H AST 84 H ALT 54 H Alkaline Phosphatase 137 H Total Protein 5.2 L Albumin 3.0 L Globulin 2.2 Albumin/Globulin Ratio 1.4 DVT/PE Assessment - Risk for VTE Risk for VTE: No Risk Level: Moderate Risk Assessment Date: 10/20/19 Risk Assessment Time: 15:39 VTE Orders Placed or Will Be Placed: Yes - Active Medicaitons Current Medications: Current Medications Chlordiazepoxide HCl (Librium) 20 mg PO Q8HR [facility] Last Admin: 10/22/19 08:28 Dose: 20 mg Documented by: Cyanocobalamin (Vitamin B-12) 100 mcg PO DAILY [facility] Stop: 10/24/19 11:16 Last Admin: 10/22/19 09:50 Dose: 100 mcg Documented by: Enoxaparin Sodium (Lovenox) 40 mg SQ DAILY [facility] Last Admin: 10/22/19 09:44 Dose: 40 mg Documented by: Escitalopram Oxalate (Lexapro) 20 mg PO DAILY [facility] Last Admin: 10/22/19 09:58 Dose: 20 mg Documented by: Folic Acid () 1 mg PO DAILY [facility] Stop: 10/24/19 11:16 Last Admin: 10/22/19 09:50 Dose: 1 mg Documented by: Hydrochlorothiazide (Hctz 12.5mg) 12.5 mg PO DAILY [facility] Last Admin: 10/22/19 09:49 Dose: 12.5 mg Documented by: Promethazine HCl 12.5 mg/ (Sodium Chloride) 100.5 mls @ 200 mls/hr IVPB Q6H PRN PRN Reason: NAUSEA Lorazepam (Ativan) 1 mg IV Q2H PRN PRN Reason: ALCOHOL WITHDRAWAL Last Admin: 10/21/19 13:17 Dose: 1 mg Documented by: Lorazepam (Ativan) 2 mg IV NOW PRN PRN Reason: SEIZURE Lorazepam (Ativan) 2 mg IV Q1H PRN PRN Reason: ALCOHOL WITHDRAWAL Losartan Potassium (Cozaar) 50 mg PO DAILY [facility] Last Admin: 10/22/19 09:49 Dose: 50 mg Documented by: Magnesium Oxide (Mag Ox) 400 mg PO DAILY [facility] Multivitamins/Minerals (Centrum) 1 tab PO DAILY [facility] Last Admin: 10/22/19 09:49 Dose: 1 tab Documented by: Pantoprazole Sodium (Protonix Iv) 40 mg IVP Q24H [facility] Last Admin: 10/21/19 20:48 Dose: 40 mg Documented by: AMI Plan - Labs Result Diagrams: 10/22/19 05:42 10/22/19 05:42
[2019-10-22] MEDS: MAGNESIUM OXIDE 400 MG TABLET PO SCH (13:52)
[2019-10-22] MEDS ORDERED: ACETAMINOPHEN 325 MG TAB PO PRN (14:16)
[2019-10-22] MEDS ORDERED: IBUPROFEN 600 MG TABLET PO PRN (14:25)
[2019-10-22 20:34] LABS: HEP A AB IGM Nonreactive (Nonreactive); HEPATITIS B CORE ANTIBODY,IGM Nonreactive (Nonreactive); HEPATITIS B SURFACE ANTIGEN Nonreactive (Nonreactive); HEPATITIS C VIRUS ANTIBODY Nonreactive (Nonreactive)
[2019-10-22] MEDS: PANTOPRAZOLE SODIUM IV 40 MG VIAL IVP SCH (22:35)
[2019-10-23 06:01] LABS: ABSOLUTE NEUTROPHIL COUNT 1.72; BASO % 0.6 % (0-6); EOS % 1.7 % (0-6); GRAN % 48.2 % (47-80); HEMATOCRIT 32.8 % (35.0-47.0); HEMOGLOBIN 10.4 gm/dl (11.6-16.0); LYMPH % 37.4 % (16-45); MEAN CELL VOLUME 111.2 fl (81-97); MEAN CORPUSCULAR HGB CONC 31.7 g/dl (32-36); MEAN PLATELET VOLUME 10.1 fl (7.4-10.4); MONO % 12.1 % (0-9); PLATELET COUNT 131 K/uL (130-400); RED BLOOD COUNT 2.95 M/uL (3.80-5.40); RED CELL DISTRIBUTION WIDTH 13.4 % (11.5-14.5); WHITE BLOOD COUNT W/O DIFF 3.6 K/uL (4.2-12.2)
[2019-10-23 06:02] LABS: MEAN CORPUSCULAR HEMOGLOBIN 35.2 pg (27-33)
[2019-10-23 06:13] LABS: ALB/GLOB RATIO 1.4 (1.1-1.8); ALKALINE PHOSPHATASE 134 U/L (35-104); ALT/SGPT 45 U/L (<33); AST/SGOT 59 U/L (10.0-35.0); BLOOD UREA NITROGEN 4 mg/dL (6-20); CREATININE 0.8 mg/dL (0.5-0.9); EST GLOMERULAR FILTRATION RATE > 60 mL/min; GLUCOSE,RANDOM 98 mg/dL (74-109); TOTAL PROTEIN 5.2 g/dL (6.6-8.7)
[2019-10-23] MEDS: CHLORDIAZEPOXIDE 10 MG CAPSULE PO SCH (06:50)
[2019-10-23] MEDS: LOSARTAN POTASSIUM 25 MG TABLET PO SCH (09:46)
[2019-10-23] MEDS: THIAMINE MONONITRATE 100 MG TABLET PO SCH (09:46)
[2019-10-23] MEDS: ESCITALOPRAM 10 MG TABLET PO SCH (09:46)
[2019-10-23] MEDS: FOLIC ACID 1 MG TABLET PO SCH (09:47)
[2019-10-23] MEDS: MULTIVITAMINS/MINERALS TABLET PO SCH (09:47)
[2019-10-23] MEDS: CYANOCOBALAMIN (VITAMIN B-12) 100 MCG TABLET PO SCH (09:47)
[2019-10-23] MEDS: MAGNESIUM OXIDE 400 MG TABLET PO SCH (09:47)
[2019-10-23] MEDS: ENOXAPARIN 40 MG/0.4 ML SYR SQ SCH (09:47)
[2019-10-23] MEDS: HYDROCHLOROTHIAZIDE 12.5 MG CAPSULE PO SCH (09:47)
[2019-10-23] MEDS ORDERED: POLYETHYLENE GLY 17 GM PACKET PO SCH (10:00)
--- NOTE | 2019-10-23 11:18 | Discharge Summary ---
Providers Discharge Summary Date: 10/23/19 Date of admission: 10/19/19 19:51 Expected Date of Discharge: 10/23/19 Attending physician: KASSANDRA HELLER Primary care physician: DAVID HERRON M.D. Consults: Consult Orders 10/21/19 10:11 Consult NOW Consulting Provider: CECILIA KATZ Physician Instructions: Reason For Exam: elevated liver enzymes 10/21/19 11:04 Consult - Case Management Now Comment: Reason For Exam: Alcohol Withdrawal Physical Exam - Vital Signs Vital Signs: Vital Signs - Last 24 Hrs Temp Pulse Pulse Pulse Resp BP Pulse Ox 10/23/19 08:50 98.0 F 75 16 100/63 96 10/23/19 08:17 71 18 10/23/19 05:00 97.8 F 70 18 107/61 98 10/23/19 00:00 68 18 10/22/19 21:00 74 10/22/19 20:00 98.2 F 74 18 98/61 96 10/22/19 15:07 97.8 F 79 16 110/68 96 - General General Appearance: Alert, Oriented x3, Cooperative, No acute distress (The patient is awake and alert with no tremors or slurred speech. ) Limitations: No limitations - Head Head exam: Atraumatic, Normocephalic, Normal inspection - Eye Eye exam: Normal appearance, PERRL - ENT ENT exam: Normal exam Ear exam: Normal external inspection Mouth exam: Normal external inspection Throat exam: Normal inspection. negative: Tonsillar erythema, Tonsillar exudate - Neck Neck exam: Normal inspection, Full ROM. negative: Tenderness - Respiratory Respiratory exam: Normal lung sounds bilaterally. negative: Respiratory distress - Cardiovascular Cardiovascular Exam: Normal rhythm, Normal heart sounds, Tachycardia. negative: Diastolic murmur, Systolic murmur Peripheral Pulses: 3+: Radial (R), Radial (L), Dorsalis Pedis (R), Dorsalis Pedis (L) - GI/Abdominal GI/Abdominal exam: Soft, Normal bowel sounds, Tenderness (There is mild RUQ and epigastric tenderness.). negative: Rebound, Rigid - Extremities Extremities exam: Normal inspection, Full ROM, Normal capillary refill. negative: Tenderness - Back Back exam: Reports: Normal inspection - Neurological Neurological exam: Alert, Normal gait, Oriented X3, Other (Neg for tremors.). negative: Abnormal gait, Altered, Motor sensory deficit - Psychiatric Psychiatric exam: Normal affect, Normal mood Hospitalization - Hospitalization Admission Diagnosis: 1. Acute Alcoholic Hepatitis with vomiting. - Problem List/Discharge Diagnosis (1) Alcoholic hepatitis without ascites Current Visit: Yes Status: Acute Base Code: K70.10 - ALCOHOLIC HEPATITIS WITHOUT ASCITES Comment: 10/23/19 -pt in no distress, hep screening neg for A,B,C -bili elevated slightly but pt has f/u with PCP tomorrow and will get GI consult with them, Dr Deleon reports bili will be elevated for an extended period of time -pt to maintain sobriety, given 1 day of libirum to f/u with PCP 10/22/2019 -bilirubin decreased, pt a&ox4 -72 hours at noon today, d/c tomorrow and pt has appt with PCP thursday -will give 1 day of librium until pt seen by PCP, pt educated on the danger of mixing ETOH with medication and verbalized understanding and desire to remain sober 10/21/2019 -pt bilirubin increasing, passing in urine and reports itching -GI consult ordered and Dr Deleon saw pt on the floor, suggests Hep screening, continued ETOH avoidance, and f/u with PCP and get GI oupt consult -pt has been tolerating PO medications, had one elevated CIWA of 8 but control led symptoms in general, has not completed her 72 hours of sobriety and concerns for prolonged symptoms remain -continue to monitor, mag 0.9, given 2gm Mag sulfate IVPB, continue to monitor -librium 15mg TID and ativan PRN for symptoms control, CIWA q 4 hrs 10/20/19 -pt drinks 1.5 pints daily for 6 months, h/o daily ETOH abuse 8 yrs -CT neg for acute process, lipase neg, -N/V tx, pt tolerating CLD and advancing this HS -repeat labs in the am -CIWA q4hrs, librium 15mg TID and ativan IVP PRN -cont cardiac monitoring (2) Hypokalemia Current Visit: Yes Status: Acute Base Code: E87.6 - HYPOKALEMIA Comment: 10/23/2019 -K 2.8-->3.8-->3.3-->3.2--3.6 -pt has returned to regular diet, PO intake wnl -f/u PCP tomorrow 10/22/2019 -K 2.8-->3.8-->3.3-->3.2 -pt given PO supp, IVF d/c 10/21/2019 -K 2.8-->3.8-->3.3 -k supp in IVF infusing, vomiting has stopped, diet advance as tolerated 10/20/19 -K 2.8, replaced and repeat 3.8 -repeat labs in the AM (3) Elevated bilirubin Current Visit: Yes Status: Acute Base Code: R17 - UNSPECIFIED JAUNDICE Comment: 10/23/2019 -bilirubin 4-->1.8-->5.2-->4.9-->5.3 -slight yellowing of sclera, RUQ tenderness, hep screening neg -f/u PCP and GI 10/22/2019 -bilirubin 4-->1.8-->5.2-->4.9 -GI consult was completed yesterday, cleared to d/c if coags wnl -PT 12.2-->13.1 -INR 1.2-->1.3 -aPTT 24.5-->25.2 -pt to f/u with GI outpt (4) Hypomagnesemia Current Visit: Yes Status: Acute Base Code: E83.42 - HYPOMAGNESEMIA Commen t: 10/23/2019 -mag continues to be low but not critical, IVPB was not tolerated yesterday, PO given and will continue for several days 10/22/2019 -mag was found to be 0.9, given 2gm IVPB and increased to 1.2 -repeat IVPB was attempted but was not tolerated by pt, changed to PO mag -continue to monitor, repeat lab in AM -d/c if stable (5) DVT prophylaxis Current Visit: Yes Status: Acute Base Code: Z29.9 - ENCOUNTER FOR PROPHYLACTIC MEASURES, UNSPECIFIED Comment: 10/23/19 -lovenox 40mg SQ daily starting tomorrow, mod risk r/t decreased activity (6) Full code status Current Visit: Yes Status: Acute Base Code: Z78.9 - OTHER SPECIFIED HEALTH STATUS Comment: 10/23/19 -full code this admission - Hospitalization Course Hospital Course: 34 yo female presents for ETOH withdrawal, abd pain, n/v/d. Reporting 8 year ETOH abuse with increase to 1.5 pint daily in the past 6 months. Symptoms of sweating, shaking, nausea, vomiting, tachycardia after 4 hours of no ETOH. Pt is requesting detox but denies desire to go to rehab and believes she does not need to attend AA as she is determined to remain sober and has the will power to do so. Vitals stable at arrival 98.8 F, HR 107, RR 26, BP 132/88, 98% RA pain 5/10 Pt given 1 L NS, zofran, K sup CT ab/pel neg for acute process, hepatomegaly with fatty infiltrates, gallbladder sludge noted US- neg acute process, fatty liver infiltrates Admit for ETOH withdrawal Laboratory Tests 10/19/19 10/19/19 10/19/19 16:55 16:55 16:55 WBC 5.5 RBC 3.84 Hgb 13.5 Hct 40.4 Plt Count 182 Absolute Neutrophils 2.70 PT 12.2 H INR 1.2 APTT 24.5 Sodium 133 L Potassium 2.8 L* Chloride 83 L Carbon Dioxide 27.0 Anion Gap 23.0 H BUN 12 Creatinine 1.4 H Estimated GFR 46 Random Glucose 101 Calcium 9.3 Total Bilirubin 4.00 H Direct Bilirubin 2.6 H AST 202 H ALT 94 H Alkaline Phosphatase 176 H Total Protein 7.1 Albumin 4.2 Lipase 50 10/20/19 Pt pwd, sitting up in bed with no difficulties, no tremors, denies n/v and reports ready to advance diet. Pt continues to decline rehab treatment and wants to d/c after the 72 hr withdrawal window has finished. She is wanting to f/u with PCP and start antibuse for continued treatment. Lungs CTA, RRR, and a&ox4. POC to add librium for the next 2-3 days, continue CIWA scale q4, teletypesetter monitor, repeat labs in the AM. Prolonged QT noted, d/c zofran, changed celexa to lexapro. PCP [facility] Procedures: Imaging and X-Rays 10/19/19 16:41 ABDOMEN, LIMITED [US] Stat 10/19/19 17:39 ABDOMEN/PELVIS WO CONTRAST [CT] Stat Cardiology Procedures 10/19/19 17:34 EKG NOW 10/19/19 19:44 [employer]ist .Continuous EKG QDX2@0600 Abnormal Labs: Abnormal Lab Results 10/19/19 10/19/19 10/19/19 Range/Units 16:55 16:55 16:55 WBC (4.2-12.2) K/uL RBC (3.80-5.40) M/uL Hgb (11.6-16.0) gm/dl Hct (35.0-47.0) % MCV 105.2 H (81-97) fl MCH 35.2 H (27-33) pg MCHC (32-36) g/dl Plt Count (130-400) K/uL Monocytes % 12.8 H (0-9) % PT (9.5-12.1) SECONDS Sodium 133 L (136-145) mmol/L Potassium 2.8 L* (3.4-4.5) mmol/L Chloride 83 L (98-107) mmol/L Carbon Dioxide (22-29) mmol/L Anion Gap 23.0 H (7-16) BUN (6-20) mg/dL Creatinine 1.4 H (0.5-0.9) mg/dL Calcium (8.6-10.0) mg/dL Magnesium (1.6-2.6) mg/dL Total Bilirubin 4.00 H (0.2-1.0) mg/dL Direct Bilirubin 2.6 H (0-0.3) mg/dL AST 202 H (10.0-35.0) U/L ALT 94 H (<33) U/L Alkaline Phosphatase 176 H (35-104) U/L Total Protein (6.6-8.7) g/dL Albumin (4.0-5.0) g/dL Ethyl Alcohol 0.116 H (0-0.010) g/dL 10/19/19 10/20/19 10/20/19 Range/Units 16:55 06:25 06:25 WBC 4.1 L (4.2-12.2) K/uL RBC 2.91 L (3.80-5.40) M/uL Hgb 10.1 L (11.6-16.0) gm/dl Hct 31.9 L (35.0-47.0) % MCV 109.6 H (81-97) fl MCH 34.7 H (27-33) pg MCHC 31.7 L (32-36) g/dl Plt Count 109 L (130-400) K/uL Monocytes % 11.9 H (0-9) % PT 12.2 H (9.5-12.1) SECONDS Sodium (136-145) mmol/L Potassium (3.4-4.5) mmol/L Chloride 97 L (98-107) mmol/L Carbon Dioxide (22-29) mmol/L Anion Gap (7-16) BUN (6-20) mg/dL Creatinine 1.2 H (0.5-0.9) mg/dL Calcium 7.6 L (8.6-10.0) mg/dL Magnesium (1.6-2.6) mg/dL Total Bilirubin 4.80 H (0.2-1.0) mg/dL Direct Bilirubin (0-0.3) mg/dL AST 171 H (10.0-35.0) U/L ALT 71 H (<33) U/L Alkaline Phosphatase 124 H (35-104) U/L Total Protein 5.1 L (6.6-8.7) g/dL Albumin 3.0 L (4.0-5.0) g/dL Ethyl Alcohol (0-0.010) g/dL 10/21/19 10/21/19 10/22/19 Range/Units 06:15 06:15 05:42 WBC 3.2 L 3.1 L (4.2-12.2) K/uL RBC 3.06 L 2.95 L (3.80-5.40) M/uL Hgb 10.6 L 10.2 L (11.6-16.0) gm/dl Hct 33.8 L 32.8 L (35.0-47.0) % MCV 110.5 H 111.2 H (81-97) fl MCH 34.6 H 34.5 H (27-33) pg MCHC 31.4 L 31.1 L (32-36) g/dl Plt Count 121 L 115 L (130-400) K/uL Monocytes % 12.3 H 12.9 H (0-9) % PT (9.5-12.1) SECONDS Sodium (136-145) mmol/L Potassium 3.3 L (3.4-4.5) mmol/L Chloride 95 L (98-107) mmol/L Carbon Dioxide 30.0 H (22-29) mmol/L Anion Gap (7-16) BUN (6-20) mg/dL Creatinine 1.0 H (0.5-0.9) mg/dL Calcium 8.1 L (8.6-10.0) mg/dL Magnesium 0.9 L* (1.6-2.6) mg/dL Total Bilirubin 5.20 H (0.2-1.0) mg/dL Direct Bilirubin (0-0.3) mg/dL AST 152 H (10.0-35.0) U/L ALT 70 H (<33) U/L Alkaline Phosphatase 136 H (35-104) U/L Total Protein 5.5 L (6.6-8.7) g/dL Albumin 3.4 L (4.0-5.0) g/dL Ethyl Alcohol (0-0.010) g/dL 10/22/19 10/22/19 10/23/19 Range/Units 05:42 05:42 05:30 WBC 3.6 L (4.2-12.2) K/uL RBC 2.95 L (3.80-5.40) M/uL Hgb 10.4 L (11.6-16.0) gm/dl Hct 32.8 L (35.0-47.0) % MCV 111.2 H (81-97) fl MCH 35.2 H (27-33) pg MCHC 31.7 L (32-36) g/dl Plt Count (130-400) K/uL Monocytes % 12.1 H (0-9) % PT 13.1 H (9.5-12.1) SECONDS Sodium (136-145) mmol/L Potassium 3.2 L (3.4-4.5) mmol/L Chloride 97 L (98-107) mmol/L Carbon Dioxide 30.0 H (22-29) mmol/L Anion Gap (7-16) BUN 5 L (6-20) mg/dL Creatinine (0.5-0.9) mg/dL Calcium 8.0 L (8.6-10.0) mg/dL Magnesium 1.2 L (1.6-2.6) mg/dL Total Bilirubin 4.90 H (0.2-1.0) mg/dL Direct Bilirubin (0-0.3) mg/dL AST 84 H (10.0-35.0) U/L ALT 54 H (<33) U/L Alkaline Phosphatase 137 H (35-104) U/L Total Protein 5.2 L (6.6-8.7) g/dL Albumin 3.0 L (4.0-5.0) g/dL Ethyl Alcohol (0-0.010) g/dL 10/23/19 Range/Units 05:30 WBC (4.2-12.2) K/uL RBC (3.80-5.40) M/uL Hgb (11.6-16.0) gm/dl Hct (35.0-47.0) % MCV (81-97) fl MCH (27-33) pg MCHC (32-36) g/dl Plt Count (130-400) K/uL Monocytes % (0-9) % PT (9.5-12.1) SECONDS Sodium (136-145) mmol/L Potassium (3.4-4.5) mmol/L Chloride (98-107) mmol/L Carbon Dioxide (22-29) mmol/L Anion Gap (7-16) BUN 4 L (6-20) mg/dL Creatinine (0.5-0.9) mg/dL Calcium 8.4 L (8.6-10.0) mg/dL Magnesium 1.1 L (1.6-2.6) mg/dL Total Bilirubin 5.30 H (0.2-1.0) mg/dL Direct Bilirubin (0-0.3) mg/dL AST 59 H (10.0-35.0) U/L ALT 45 H (<33) U/L Alkaline Phosphatase 134 H (35-104) U/L Total Protein 5.2 L (6.6-8.7) g/dL Albumin 3.0 L (4.0-5.0) g/dL Ethyl Alcohol (0-0.010) g/dL Condition at Discharge: (2) Stable Discharge Medications - Discharge Medications Prescriptions: Chlordiazepoxide HCl [Librium] 10 mg PO Q8HR #3 cap Folic Acid 1 mg PO DAILY 5 Days tablet Escitalopram Oxalate [Lexapro] 20 mg PO DAILY #4 tab Magnesium Oxide [Mag Ox] 400 mg PO DAILY #5 tab Polyethylene Glycol 3350 [Miralax] 17 gm PO DAILY #5 packet Thiamine Mononitrate [Vitamin B-1] 100 mg PO DAILY #5 tablet Cyanocobalamin (Vitamin B-12) [Vitamin B-12] 100 mcg PO DAILY #5 tablet Home Medications: Ambulatory Orders Losartan/Hydrochlorothiazide [Losartan-Hctz 50-12.5 mg Tab] 1 each PO DAILY 03/29/19 [Last Taken 10/18/19] Omeprazole [Prilosec] 20 mg PO DAILY 03/29/19 [Last Taken 10/18/19] Cholecalciferol (Vitamin D3) [Vitamin D3] 2,000 unit PO DAILY 10/19/19 [Last Taken 10/18/19] Acetaminophen [Tylenol 325Mg] 650 mg PO Q6H PRN tablet 10/23/19 [Last Taken Unknown] Chlordiazepoxide HCl [Librium] 10 mg PO Q8HR #3 cap 10/23/19 [Last Taken Unknown ] Cyanocobalamin (Vitamin B-12) [Vitamin B-12] 100 mcg PO DAILY #5 tablet 10/23/19 [Last Taken Unknown] Escitalopram Oxalate [Lexapro] 20 mg PO DAILY #4 tab 10/23/19 [Last Taken Unknown] Folic Acid 1 mg PO DAILY 5 Days tablet 10/23/19 [Last Taken Unknown] Hydrochlorothiazide [Hctz] 12.5 mg PO DAILY capsule 10/23/19 [Last Taken Unknown] Ibuprofen [Motrin 600Mg] 600 mg PO Q8H PRN tablet 10/23/19 [Last Taken Unknown] Magnesium Oxide [Mag Ox] 400 mg PO DAILY #5 tab 10/23/19 [Last Taken Unknown] Multivitamin/Iron/Folic Acid [Centrum] 1 tab PO DAILY tablet 10/23/19 [Last Taken Unknown] Polyethylene Glycol 3350 [Miralax] 17 gm PO DAILY #5 packet 10/23/19 [Last Taken Unknown] Thiamine Mononitrate [Vitamin B-1] 100 mg PO DAILY #5 tablet 10/23/19 [Last Taken Unknown] Discharge Plan - Discharge Instructions Diet at Discharge: Advance to Usual Diet Instructions: Alcoholic Hepatitis (DC) Additional Instructions: Activity: As tolerated Diet: May resume home diet as tolerated Consults: Have PCP send consult for GI and schedule an upper GI Follow Up: Appointment with Dr. Herron on Thursday at 3:00PM. Additional: You will be contacted by a Peer Advocate from [email or web address]. [email or web address] can be reached at Thank you for choosing [facility]!! Quality Measures - Quality Measures Quality Measures: Documentation of Current Medications in Medical Record, Screening for High Blood Pressure and F/U Documented - Current Medications Quality Measure: Measure #130: Documentation of Current Medications Documentation of Current Medications: <Current Medications Documented/Reviewed> [G8427] - Blood Pressure Screening Quality Measure: Screening for High Blood Pressure and Follow-Up Documented Does Patient Have Any of the Following: Active Dx of HTN Blood Pressure Classification: Normal BP Reading Systolic Measurement: 102 Diastolic Measurement: 57 Screening for High Blood Pressure: Patient Exclusion, Hx of HTN [G9744] - Elder Abuse Suspicion Index EASI Reference Information: Jed GALDAMEZ, Seth C, Haritha D, Aidan Stoddard.Development and validation of a tool to assist physicians identification of elder abuse: The Elder Abuse Suspicion Index (EASI ). Journal of Elder Abuse and Neglect, 2008; 20 (3): 276-300.
--- NOTE | 2019-10-24 14:10 | Medical Records Consult ---
DATE OF CONSULTATION: 10/21/2019 REASON FOR CONSULTATION: Abdominal pain and jaundice. HISTORY OF PRESENT ILLNESS: This is a 34-year-old female with history of long- term gastroesophageal reflux disease and alcohol abuse who presented to the hospital with ongoing abdominal pain with nausea and vomiting and was noted to be jaundiced. She indicated that she has been drinking alcohol heavily recently and denies any fever or any chills, any diarrhea or constipation. PAST MEDICAL HISTORY: Significant for alcohol abuse. PAST SURGICAL HISTORY: None of significant note. SOCIAL HISTORY: Significant for significant alcohol abuse over the last several years. She has attempted to quit in the past. FAMILY HISTORY: Noncontributory. REVIEW OF SYSTEMS: A 12-point system review as documented in her chart and is unchanged. PHYSICAL EXAMINATION: GENERAL: A pleasant female lying in bed in no apparent distress with vital signs that show blood pressure of 130/80, respiration 18, heart rate 90. HEENT: She is not pale but jaundiced. Oral mucosa is moist with no ulcers and her throat is clear. NECK: Supple. No palpable lymph nodes or thyromegaly. LUNGS: Clear to auscultation bilaterally with no wheezes or rales. HEART: S1, S2. No gallop or murmur. ABDOMEN: Soft. Mild tenderness in the right upper quadrant and epigastric region but no rebound tenderness and no palpable masses or organomegaly. Bowel sounds are present and normoactive. EXTREMITIES: No clubbing, cyanosis, or edema. NEUROLOGIC: She is alert and oriented x3. No focal deficit grossly. LABORATORY DATA: Complete blood count revealed hemoglobin of 13.5, WBC 5.5, platelet count 182,000. INR was 1.2. Sodium 133, potassium 2.8, chloride 83, creatinine 1.4 on admission, total bilirubin 4.0, AST 202, ALT 94, alkaline phosphatase 176, lipase 50. She had an abdominal ultrasound that was negative for gallbladder disease and CT scan was significant for enlarged liver with fatty deposits. IMPRESSION: A 34-year-old female with alcohol abuse and alcoholic hepatitis, question gastroesophageal reflux disease as a contributing factor. It has been long-term, however. RECOMMENDATIONS: 1. She is to quit drinking alcohol. 2. We will obtain laboratory data to rule out any other significant hepatobiliary disease. 3. She should have proton pump inhibitors. 4. She should have upper endoscopy as an outpatient. I would be happy to see her back in the office after discharge from the hospital. thank you for allowing me to participate in the care of this patient. [facility]
== END 2019-10-23 12:16 | disposition home or self-care (01) | DRG 433 ==
LOC: ER 16:30 → MEDSURG 19:51
PROVIDERS: ADMIT Internal Medicine; ATTEND Internal Medicine
DX: K70.10 Alcoholic hepatitis without ascites (principal); R17 Unspecified jaundice; E87.6 Hypokalemia; E83.42 Hypomagnesemia; F41.9 Anxiety disorder, unspecified; Z87.891 Personal history of nicotine dependence
CPT/HCPCS: 74176; 76705; 80048; 80053; 80076; 80320; 81003; 82140; 82550; 83605; 83690; 83735; 84703; 85025; 85610; 85730; 86705; 86803; 87340; 93005; 93010; 96365; 96366; 96374; 99223; 99233; 99239; 99285; C9113; J1650; J2405; J3411; J3480; J7030